=== PATIENT | female | born 1960 | race Caucasian/White ===

== ENCOUNTER → 2016-07-16 | Outpatient (CLI) | payer OTHER ==
[~2016-07-16] MED LIST: ACETAMINOPHEN &1 TA1 PO; ANTI ANXIETY MED; APAP/BUTALBITAL1 TA1 PO; BACLOFEN 10MG T10 MG PO; ESCITALOPRAM 2020 MG PO; ESTRACE1 MG PO; FLEXERIL10 M1 PO; GABAPENTIN300 MG PO; HYDROCHLOROTHIA25 M1 PO; HYDROCODONE BIT1 T39 PO; HYDROCODONE-APA1 TA1 PO; KLOR-CON M2020 ME1 PO; LEVOTHYROXIN0.075 MG PO; LORTAB 5/500 501 TAB PO; MEDROL 4MG. DOSE4 MG PO; MEDROL DOSEPAK4 MG PO; NAPROSYN 500MG500 MG PO; NEURONTIN600 MG PO; NORCO1 TAB PO; NORVASC5 MG PO; PHENERGAN 25MG.25 M1 PO; PIROXICAM20 MG PO; PLAQUENIL200 MG PO; PRILOSEC20 MG PO; TIZANIDINE HCL2 MG PO; TOPROL XL 100M100 MG PO; TRAMADOL 50MG T50 M1 PO; TRAZODONE 50MG50 MG PO; VICODIN ES 7501 TAB PO; ZITHROMAX Z PA250 MG PO
--- NOTE | 2016-07-16 16:24 | RADIOLOGY REPORT PS360 ---
MRI-T-SPINE W/O HISTORY: Worsening back pain, mid back pain. Pain around scapula WORSENING BACK PAIN ORDERING PHYSICIAN: ERICA KIBMALL CRNA PATIENT AGE: 56 years COMPARISON: None TECHNIQUE: Standard multiplanar multiecho sequences are performed without contrast. 3-D MIP and myelographic images are also rendered and reviewed FINDINGS: There is normal alignment. No fracture or dislocation evident. No significant disc desiccation. The spinal cord has an unremarkable appearance. There is no evidence of canal stenosis, disc herniation, or other extradural defects.. No paraspinal mass evident. No destructive process. A small T2 hyperintensities present in the T10 vertebral body posteriorly at 5 mm of questioned clinical significance IMPRESSION: Essentially negative MRI of the thoracic spine
--- NOTE | 2016-07-16 16:24 | RADIOLOGY REPORT PS360 ---
MRI-T-SPINE W/O HISTORY: Worsening back pain, mid back pain. Pain around scapula WORSENING BACK PAIN ORDERING PHYSICIAN: ERICA KIMBALL CRNA PATIENT AGE: 56 years COMPARISON: None TECHNIQUE: Standard multiplanar multiecho sequences are performed without contrast. 3-D MIP and myelographic images are also rendered and reviewed FINDINGS: There is normal alignment. No fracture or dislocation evident. No significant disc desiccation. The spinal cord has an unremarkable appearance. There is no evidence of canal stenosis, disc herniation, or other extradural defects.. No paraspinal mass evident. No destructive process. A small T2 hyperintensities present in the T10 vertebral body posteriorly at 5 mm of questioned clinical significance IMPRESSION: Essentially negative MRI of the thoracic spine
== END ==
LOC: RAD 13:36
DX: M54.6 Pain in thoracic spine (principal)

== ENCOUNTER → 2016-12-27 | Outpatient (CLI) | payer OTHER ==
[~2016-12-27] MED LIST changes: +KEFLEX 500MG.500 MG PO
--- NOTE | 2016-12-31 09:25 | RADIOLOGY REPORT PS360 ---
DIG MAMM-SCREEN JALIL W/CAD CAD Screening ORDERING PHYSICIAN : Lele Grimes MD PATIENT AGE: 56 years GENDER: Female COMPARISON: Previous mammograms: 1 INDICATION: Routine screening . History states patient has lost 20 pounds since prior study. She also states she is on female hormones- nonspecified. No new complaints Noncontributory family history. TECHNIQUE: Standard CC and MLO images were obtained. R2 CAD reviewed. FINDINGS: Fairly low-density breast with no dominant mass nor suspicious calcifications. Compared to prior studies there is subtle accentuation of fibroglandular elements bilaterally which likely reflects exogenous hormone effect along with technique RIGHT BREAST:. No mass lesions. No significant new findings Scattered tiny dense punctate benign appearing calcifications right breast is similar to slight progression since last year. Can be followed safely LEFT BREAST: No mass lesion. No significant new findings Partially grouped Tiny dense benign punctate calcifications at the far lateral left breast have shown slight increased in number but are benign configuration and most likely derrmal IMPRESSION: No significant interval change. No malignancy evident radiographically . Routine annual Follow-up in one year recommended BI-RADS CATEGORY: 2_Benign RECOMMENDED FOLLOWUP: 12M 12 MONTH FOLLOW-UP (A letter has been sent to the patient regarding results of the study.)
== END ==
LOC: RAD 09:51
DX: Z12.31 Encounter for screening mammogram for malignant neoplasm of breast (principal)
CPT/HCPCS: G0202

== ENCOUNTER → 2016-12-31 | Outpatient (CLI) | payer OTHER | LOC: ER 07:06 | DX: S01.01XA Laceration without foreign body of scalp, initial encounter (principal) | CPT/HCPCS: G0168 ==